=== PATIENT | male | born 1970 | race Caucasian/White ===

== ENCOUNTER 2016-09-11 10:26 | Inpatient (IN) | payer SELFPAY ==
--- NOTE | ~2016-09-11 | CN ---
Consultation Report [facility] [address] [place]. [address] NAME: TUAN ANGUOL : 74 STATUS : ADM Margaret PAT#: [id number] AGE: 46 ADM/REG DATE : 09/11/16 MR#: [id number] REPORT SERV DATE: 09/12/16 DICTATED BY: DIOGO ABDALLA DATE: 09/12/16 REPORT STATUS : Draft TRANSCRIBED BY: MODL DATE: 09/12/16 CARDIOLOGY CONSULTATION DATE OF CONSULTATION: 09/12/2016 REASON FOR CONSULTATION: Ischemic cardiomyopathy with recent syncope. HISTORY OF PRESENT ILLNESS: The patient is a 46-year-old white male with a history of ischemic cardiomyopathy and remote coronary stenting who presented to [facility] on 09/07/2016, five days ago, after a syncopal episode while mowing the yard with a push mower. He works as a air conditioning engineer and was out mowing when he "got stumbly" and then lost consciousness. He regained consciousness quickly and was taken by his friends to [facility]. He underwent syncopal workup there including an echocardiogram and carotid ultrasound as well as CT scan. Echocardiogram showed left ventricular ejection fraction of 35% with diastolic dysfunction as well as yvjk-bx-vyygnahn mitral regurgitation. No significant aortic stenosis or regurgitation. This ejection fraction is actually slightly improved from a previous myocardial perfusion scan in May of 2015 which showed an EF of 28%. Carotid ultrasound showed moderate disease in the left ICA. The patient was transferred to [facility] for further evaluation at his request. His troponins have been negative and there is no evidence of acute CHF exacerbation. He denies any chest pain and has not had any recurrent syncope or presyncope. PAST MEDICAL HISTORY: Significant for previous myocardial infarction with stenting of the LAD in 2002 and 2005. He has chronic congestive heart failure with an ejection fraction of around 30% as well as hypertension, hyperlipidemia, poorly controlled diabetes mellitus type 2, chronic kidney disease, and peripheral vascular disease. PAST SURGICAL HISTORY: Includes the above-mentioned cardiac catheterization and stenting. FAMILY HISTORY: Positive for coronary disease in his mother with an onset at age 50 as well as diabetes in his mother. SOCIAL HISTORY: The patient is a former smoker, having quit in 2005. He is and works with a [employer] business. REVIEW OF SYSTEMS: The patient reports some nausea following syncopal episode. No recent diarrhea or dysuria. No recent cough, wheeze, sputum production, fever, or chills. No other history of previous syncope. He denies any palpitations but does report some increased dyspnea on exertion over the last 6 months as well as some mild intermittent shortness of breath that is worse when he does not take his diuretic. There is possibly some mild orthopnea although the patient states this is not that significant. PHYSICAL EXAMINATION: Consultation Report [address] [place]. [address] NAME: TUAN ANGULO : 74 STATUS : ADM Margaret PAT#: [id number] AGE: 46 ADM/REG DATE : 09/11/16 MR#: [id number] REPORT SERV DATE: 09/12/16 DICTATED BY: DIOGO ABDALLA DATE: 09/12/16 REPORT STATUS : Draft TRANSCRIBED BY: GABRIELA DATE: 09/12/16 VITAL SIGNS: Blood pressure is 124/80, heart rate is 82 and regular, and respirations 16 and nonlabored. The patient is afebrile. GENERAL APPEARANCE: The patient is a well-developed, well-nourished white male, in no acute distress. HEENT: Unremarkable. NECK: Shows no jugular venous distention with good carotid upstroke. CHEST: Clear to auscultation bilaterally. CARDIOVASCULAR: The PMI is displaced inferolaterally but no murmurs, gallops, or rubs are appreciated. S1 is regular. S2 is narrowly split. ABDOMEN: Soft and nontender with normal bowel sounds. EXTREMITIES: Show no cyanosis, clubbing, or edema. SKIN: Warm and dry with no pallor or icterus. NEURO/PSYCH: The patient is alert and oriented x3 with appropriate affect. LABORATORY AND DIAGNOSTIC DATA: EKG shows normal sinus rhythm at a rate of [address]-T changes and an anterior septal scar. The QTc interval is slightly prolonged at 485 milliseconds. No acute injury pattern is present. Troponin is negative x2. BNP was slightly elevated at 938 although his chest x-ray did not show any evidence of volume overload or CHF decompensation. Chemistry panel shows a sodium of 142, potassium 4.0, BUN 23, creatinine 1.26, and magnesium of 1.7. CBC was also unremarkable with a white count of 8.8, hemoglobin slightly low at 11.1, hematocrit 32.6, and platelets 305. IMPRESSION: 1. Syncope in a patient with known ischemic cardiomyopathy. 2. Ischemic cardiomyopathy with an ejection fraction of around 35% or less. 3. Coronary artery disease, status post previous HI and stenting. 4. Hypertension. 5. Hyperlipidemia. 6. Diabetes mellitus type 2. PLAN: 1. We will plan cardiac catheterization for definitive evaluation of the coronary anatomy and possible percutaneous coronary intervention. 2. Continue home medications including beta-sadi and ARMEN inhibitor but hold metformin at this time. 3. Consider electrophysiology consult for possible AICD placement. Thank you very much for this consultation. We will follow the patient with you. AGATA/GABRIELA Diogo Abdalla NP Consultation Report [address] [address] NAME: ADELEMAICOLTUANKONSTANTIN SHETTY : 74 STATUS : ADM Margaret PAT#: [id number] AGE: 46 ADM/REG DATE : 09/11/16 MR#: [id number] REPORT SERV DATE: 09/12/16 DICTATED BY: DIOGO ABDALLA DATE: 09/12/16 REPORT STATUS : Draft TRANSCRIBED BY: GABRIELA DATE: 09/12/16 / [id number] CC: MD Tuan Clark M.D., F.A.C.C.
--- NOTE | ~2016-09-11 | OP ---
Record Of Operation [facility] [address] [place]. [address] NAME: TUAN ANGULO : 74 STATUS : ADM Margaret PAT#: [id number] AGE: 46 ADM/REG DATE : 09/11/16 MR#: [id number] REPORT SERV DATE: 09/13/16 DICTATED BY: TUAN GARCIA DATE: 09/13/16 REPORT STATUS : Draft TRANSCRIBED BY: MODL DATE: 09/13/16 DATE OF PROCEDURE: 09/13/2016 PTCA REPORT INDICATION FOR THIS PROCEDURE: Acute coronary syndrome. PROCEDURE IN DETAIL: The patient has already been prepped and draped. A 6-Indonesian sheath was in place in the right femoral artery for the preceding cardiac catheterization. Moderate IV sedation was administered. A 6 JR4 coronary guiding catheter was advanced to the right coronary ostium. The right coronary artery injections confirmed the presence of a 90% mid right coronary artery stenosis. A 0.014 Luge guidewire was passed into the distal right coronary artery. The vessel was then dilated with a 2.5/12 Emerge balloon at up to 15 atmospheres pressure for 15 seconds in duration. A 2.75/20 Synergy stent was then deployed at up to 15 atmospheres pressure for 15 seconds in duration. Intracoronary nitroglycerin was administered. Following removal of balloon and guidewire, final right coronary artery injection showed 0% residual stenosis at the site of stent implantation with CHANDRAKANT grade 3 distal flow. The right coronary guiding catheter was exchanged for a 6 JL4 coronary guiding catheter which was advanced to the left coronary ostium. Left coronary artery injections confirmed the presence of a segmental in-stent midvessel stenosis up to 99% severity. A 0.014 Luge guidewire was passed into the distal vessel. The vessel was then dilated with a 2.5/20 Emerge balloon and at up to 15 atmospheres of pressure for 15 seconds in duration. The proximal portion of the stenosis was then dilated with a 2.75/20 NC Emerge balloon at up to 20 atmospheres of pressure for 15 seconds in duration. Using a GuideLiner for support a 2.5/32 Synergy stent was deployed across the distal portion of the stenosis at up to 12 atmospheres pressure for 15 seconds in duration. A 2.75/28 Synergy stent was then deployed in overlapping fashion with the first stent across the proximal portion of the stenosis at up to 15 atmospheres of pressure for 15 seconds in duration. The proximal the proximal portion of the stented segment was then dilated with a 3.0/12 NC Emerge balloon at up to 20 atmospheres of pressure for 15 seconds in duration. Intracoronary nitroglycerin was administered. Following removal of balloon and guidewire, final left coronary artery injection showed 0% residual stenosis at the site of stent implantation with CHANDRAKANT grade 3 distal flow. The guiding catheter was removed. The sheath left in place. There were no apparent complications. TOTAL CONTRAST USED: 230 mL. TOTAL RADIATION EXPOSURE: 2040 mGy. ESTIMATED BLOOD LOSS: No significant blood loss occurred. IMPRESSION: 1. Successful PTCA and placement of drug-eluting stent in mid right coronary artery. 2. Successful PTCA and placement of drug-eluting in mid LAD. Record Of Operation [address] [address] NAME: TUAN ANGULO : 74 STATUS : ADM Margaret PAT#: [id number] AGE: 46 ADM/REG DATE : 09/11/16 MR#: [id number] REPORT SERV DATE: 09/13/16 DICTATED BY: TUAN GARCIA DATE: 09/13/16 REPORT STATUS : Draft TRANSCRIBED BY: GABRIELA DATE: 09/13/16 LELIA/GABRIELA Tuan Garcia M.D., F.A.C.C. / [id number] CC: Doe Sauceda MD
--- NOTE | ~2016-09-11 | OP ---
Record Of Operation [facility] [address] [place]. [address] NAME: TUAN ANGULO : 74 STATUS : ADM Margaret PAT#: [id number] AGE: 46 ADM/REG DATE : 09/11/16 MR#: [id number] REPORT SERV DATE: 09/13/16 DICTATED BY: TERRYTUAN B DATE: 09/13/16 REPORT STATUS : Draft TRANSCRIBED BY: MODL DATE: 09/13/16 DATE OF PROCEDURE: 09/13/2016 CARDIAC CATHETERIZATION REPORT INDICATION FOR THIS PROCEDURE: Acute coronary syndrome. PROCEDURE IN DETAIL: The patient was prepped and draped in usual sterile fashion. Moderate IV sedation was administered. Adequate anesthesia was obtained over the right femoral vessels using lidocaine infiltration. Using the Seldinger technique, a 6-Gambian sheath was placed in the right femoral artery. A 6 FL4 coronary catheter was advanced to the left coronary ostium. Left coronary artery injections were performed in multiple views. Left coronary catheter was exchanged for 6 FR4 coronary catheter which was advanced to the right coronary ostium. Right coronary artery injections were then performed in the ROMANSH and REDDING views. The right coronary catheter was then exchanged for a 6-Gambian pigtail catheter which was advanced in the left ventricular cavity. Pressures were measured across the aortic valve and the left ventricular angiogram was obtained in the REDDING projection. The pigtail catheter was removed over a guidewire and the sheath was left in place. There were no apparent complications. RESULTS: 1. Pressures: Left ventricular end-diastolic pressure was 18 mmHg. No gradient was present across the aortic valve. 2. Left ventricular angiogram: Left ventricle showed anterior apical hypokinesis with a global ejection fraction of 35% to 40%. 3. Coronary arteriograms: Left main coronary artery is normal. Left anterior descending coronary artery has a segmental in-stent midvessel stenosis of up to 99% severity. The left circumflex coronary artery has a patent stent in the obtuse marginal branch, but the distal obtuse marginal branch is a small caliber diffusely diseased vessel. The right coronary artery is a dominant vessel with a 90% mid vessel stenosis. IMPRESSION: 1. Three-vessel coronary artery disease with high-grade stenoses of the mid LAD and mid right coronary artery. 2. Diffuse small vessel disease. 3. Eeaqdbyz-br-folqdj left ventricular dysfunction. PLAN: The option of bypass surgery was discussed with the patient, but he did not want to have it and so it was decided to proceed with PCI of the LAD and RCA. SS/GABRIELA Tuan Garcia M.D., F.A.C.C. Record Of Operation [address] [place] [address] NAME: MAICOL ANGULOKONSTANTIN SHETTY : 74 STATUS : ADM Margaret PAT#: [id number] AGE: 46 ADM/REG DATE : 09/11/16 MR#: [id number] REPORT SERV DATE: 09/13/16 DICTATED BY: TUAN GARCIA DATE: 09/13/16 REPORT STATUS : Draft TRANSCRIBED BY: MODL DATE: 09/13/16 / [id number] CC: Doe Sauceda MD
--- NOTE | ~2016-09-11 | HP ---
History And Physical [facility] [address] [place]. [address] NAME: MATI ANGULO : 74 STATUS : ADM IN PAT#: [id number] AGE: 46 ADM/REG DATE : 09/11/16 MR#: [id number] REPORT SERV DATE: 09/11/16 DICTATED BY: IVETH NOLASCO DATE: 09/11/16 REPORT STATUS : Draft TRANSCRIBED BY: GABRIELA DATE: 09/11/16 DATE OF ADMISSION: 09/11/2016 CHIEF COMPLAINT: Weakness and shortness of breath. HISTORY OF PRESENT ILLNESS: The patient is a 46-year-old white male, who reports he has been short of breath for about six months. On Sunday, he was out mowing the grass. He works as a rental clerk tool and equipment, exerted himself with sweaty and diaphoretic and had a syncopal episode where he actually lost consciousness, was on the ground, was taken to [facility] where he was admitted. He was thought to be dry, actually received some hydration, this is all per his report. I do not have the records. He was told he had an EF around 28%, needed an AICD and pacer. He ultimately left the hospital on Sunday against medical advice. Wanted to return to [facility] where he had received care in the past with Dr. Garcia. The patient reports he has been fatigued for now 6 months. He is short of breath frequently. His last nuclear stress test was about a year ago. He reports he did not have any blockages that was done at [facility] also. He states he intermittently has some leg swelling but not today. He is not currently having chest pain. He also has a toe wound on the left great toe that he has been going to Wound Care for since February but it is actually healing. He just feels poorly much of the time and is concerned due to his level of weakness and his job requirements. He does not have typical orthopnea or PND today and he is not more short of breath than his baseline. PAST MEDICAL HISTORY: 1. CAD with history of PTCI x2 separate occasions, last in 2005. 2. Congestive heart failure. Last EF per his report on the nuclear was 28%. 3. Diabetes mellitus poorly controlled. 4. Hyperlipidemia. 5. Hypertension. 6. CKD. 7. Likely PAD. He does report he has carotid disease and he also has some diminished flow in his left foot. 8. Chronic wound to the left great toe. ALLERGIES: KEFLEX. FAMILY HISTORY: Positive for CAD and diabetes mellitus. PAST SURGICAL HISTORY: He has had no surgeries other than the cath. SOCIAL HISTORY: He quit smoking in 2005; does not drink alcohol. He works as a rental clerk tool and equipment, a very physical job. HOME MEDICATIONS: Reviewed and attached. REVIEW OF SYSTEMS: Full 10-point review was obtained. Pertinent positives are mentioned in the HPI. History And Physical [address] [address] NAME: MATI ANGULO : 74 STATUS : ADM IN [facility]#: [id number] AGE: 46 ADM/REG DATE : 09/11/16 MR#: [id number] REPORT SERV DATE: 09/11/16 DICTATED BY: IVETH NOLASCO DATE: 09/11/16 REPORT STATUS : Draft TRANSCRIBED BY: GABRIELA DATE: 09/11/16 PHYSICAL EXAMINATION: VITAL SIGNS: Current vital signs, sats are 98% on room air, pulse in the 80s, blood pressure 127/77, and temperature 98.2. GENERAL: A well-developed white male, in no apparent distress. HEENT: Normocephalic, atraumatic. Throat is clear. NECK: Supple. HEART: Regular rate and rhythm. LUNGS: Grossly clear. ABDOMEN: Soft, nontender. EXTREMITIES: Warm and dry. He has no peripheral edema. He has diminished pulses in the left foot but I did palpate on his right foot, he has a bounding pulse. He has a small toe ulcer on the left great toe on the base of his toe but it is almost completely healed. It does not appear infected in any way. SKIN: Otherwise intact. LABORATORY AND X-RAY: H and H 12 and 35, white count 10, platelets 325, and coags are normal. Chest x-ray is clear. Sodium 137, potassium 4, chloride 104, CO2 of 22, BUN and creatinine of 25 and 1.49, glucose is 378. Troponin is 0.2. Mag 1.6. EKG shows no acute ST-T wave changes. Sinus rhythm. BNP is 938. ASSESSMENT/PLAN: 1. Ischemic cardiomyopathy with progressive fatigue, weakness, and shortness of breath. He does not appear to have overt decompensated heart failure. Today, he is clear on exam. His chest x-ray does not show pulmonary edema. He has no peripheral edema. He got 1 dose of Lasix in the ER. I am not going to additionally diurese him. I am going to continue his beta sadi and ARMEN inhibitor. We will obtain his records from [facility] to include his echocardiogram which is most recent. He may need consideration for AICD and pacer. We will ask Dr. Garcia to see him in consultation and get his opinion. 2. CKD. We will need to watch his creatinine closely. I am hesitant to do any additional diuresis today since he looks to be really euvolemic to me and simply keep him on his p.o. Lasix. We will watch his creatinine closely. 3. Diabetes mellitus poorly controlled. We will check an A1c. Continue his home medications for now. We will add some sliding scale. He will likely need to be changed over to insulin. 4. Hyperlipidemia. Continue statin therapy. 5. Hypertension. Continue home medications. 6. Social circumstances. He is without insurance and I suspect he is going to have mounting healthcare bills due to the fact that he has all of these medical issues to include diabetes, CAD, ischemic cardiomyopathy, and probable PAD involving his left leg as well as his carotid. We will have case management see him in consultation to see if there is any way to qualify for some type of Medicaid or assistance. 7. Disposition pending above aforementioned plan and workup. ROEL/GABRIELA History And Physical [address] [address] NAME: MATI ANGULO : 74 STATUS : ADM IN PAT#: [id number] AGE: 46 ADM/REG DATE : 09/11/16 MR#: [id number] REPORT SERV DATE: 09/11/16 DICTATED BY: IVETH NOLASCO DATE: 09/11/16 REPORT STATUS : Draft TRANSCRIBED BY: GABRIELA DATE: 09/11/16 Iveth Nolasco M.D. / [id number] CC: Iveth Nolasco M.D.
--- NOTE | ~2016-09-11 | DS ---
Discharge Summary [address] [place]. [address] NAME: MATI ANGULO : 74 STATUS : DIS IN PAT#: [id number] AGE: 46 ADM/REG DATE : 09/11/16 MR#: [id number] REPORT SERV DATE: 09/15/16 DICTATED BY: DOE MELENDREZ DATE: 09/14/16 REPORT STATUS : Draft TRANSCRIBED BY: MODFadumo DATE: 09/14/16 ADMISSION DATE: 09/11/2016 DISCHARGE DATE: 09/14/2016 PROCEDURES DONE: 1. 09/11/2016, chest x-ray: Normal two-view chest. 2. 09/11/2016, 2D echo: Severely decreased left ventricular systolic function. Estimated ejection fraction 25% to 30%. Global hypocontractility. Normal RV size and mildly decreased systolic function. Mild to moderate mitral regurg. 09/13/2016, operative report by Dr. Garcia, cardiac cath report: Indication: Acute coronary syndrome. Results: 1. Left ventricular end-diastolic pressure was 18 mmHg. No gradient was present across the aortic valve. Left ventricular angiogram of his left ventricle showed anterior apical hypokinesis with a global ejection fraction of 35% to 40%. 2. Coronary arteriogram. Left main artery is normal. Left anterior descending coronary artery with segmental in-stent midvessel stenosis up to 99% severity. The left circumflex coronary artery has a patent stent in the obtuse marginal branch, but the distal obtuse marginal branch is a small-caliber diffusely decreased vessel. The right coronary artery is a dominant vessel with 90% mid vessel stenosis. Impression: Three-vessel coronary artery disease with high-grade stenosis in the mid LAD and mid right coronary artery. Diffuse small vessel disease. Jirkkxak-uj-lvawlt left ventricular dysfunction. Plan: Option of bypass was discussed with the patient, but he did not want to have it, so it was decided to proceed with PCI to LAD and RCA. 09/14/2015, operative report by Dr. Garcia: Indication: Acute coronary syndrome. PTCA. Contrast used was approximately 230 mL. Estimated blood loss, no significant occurred. Impression: Successful PTCA and placement of drug-eluting stent in the mid right coronary artery. Successful PTCA and placement of drug-eluting in mid LAD. REASON FOR ADMISSION: Weakness and shortness of breath. CONSULT: Dr. Garcia for Cardiology. HISTORY OF HOSPITAL STAY: A 46-year-old white male, past medical history of coronary artery disease status post stent x2, last one in 2005; congestive heart failure, last EF report via Discharge Summary [address] [place]. [address] NAME: MATI ANGULO : 74 STATUS : DIS IN PAT#: [id number] AGE: 46 ADM/REG DATE : 09/11/16 MR#: [id number] REPORT SERV DATE: 09/15/16 DICTATED BY: DOE MELENDREZ DATE: 09/14/16 REPORT STATUS : Draft TRANSCRIBED BY: MODL DATE: 09/14/16 nuclear was 28%; diabetes type 2; hyperlipidemia; hypertension; chronic kidney disease, stage III; questionable PDA; chronic wound, left great toe; presenting with weakness and shortness of breath. The patient was initially admitted at [facility] in [place], [place]. The patient requested treatment at [facility]. Dr. Garcia was consulted. Nurse practitioner, Rm saw the patient and felt the patient might be having acute coronary syndrome, and the patient underwent a heart catheterization. During the hospital stay, it was noted that the patient refused bypass at that time and hence the PTCA was initiated. The patient underwent left heart catheterization which resulted in the stent in the mid LAD and also in the mid RCA. The patient did well with the procedure. However, the patient received quite a significant contrast load of approximately 240 mL during the procedure. In addition, during the overnight stay, the patient was noted to have also intermittent V-tach. More importantly, the patient has been asked to stay overnight. Nurse practitioner, Josh Abdalla, from Dr. Garcia's group has discussed with the patient about the need to stay and the life-threatening issues of V-tach. However, the patient did not want to stay. In addition, I have also discussed the reason for staying. The patient seemed so adamant in leaving. Therefore, during the process of getting the process for the patient to go AMA, the came up and discussed the patient would like to stay 24 hours and not a day longer. I explained to the that if the patient is bent on leaving, 24 hours cannot be a guaranteed time to solve all of the patient's issues/problems. In order to prevent the patient not getting upset any further, the patient will be given his medications out of an abundance of caution and treatment for the patient to receive his medications to prevent stent closure. The patient has been advised that he will need to follow up as an outpatient. All the discussion time with the patient during this discharge as well as the time spent in the room during the AMA discussion was greater than 30 plus minutes. DISPOSITION: The patient is feeling fine, no complaints. ACTIVITIES: As tolerated. DIET: Diabetic. INSTRUCTIONS UPON DISCHARGE: The patient advised to follow up with Cardiology. MEDICATIONS UPON DISCHARGE: 1. Brilinta 90 mg p.o. b.i.d. 2. Aspirin 81 mg p.o. daily. 3. Lipitor 80 mg p.o. at bedtime. 4. Lasix 20 mg p.o. daily. 5. Lopid 600 mg p.o. b.i.d. 6. Amaryl 4 mg p.o. daily. 7. Metformin 1000 mg p.o. b.i.d., hold x2 days before restarting lisinopril 10 mg p.o. daily. 8. Multivitamin one tab daily. 9. Lopressor 50 mg p.o. b.i.d. 10.Prevacid 15 mg p.o. b.i.d. 11.Nitroglycerin sublingual p.r.n. Discharge Summary [address] [address] NAME: MATI ANGULO : 74 STATUS : DIS IN PAT#: [id number] AGE: 46 ADM/REG DATE : 09/11/16 MR#: [id number] REPORT SERV DATE: 09/15/16 DICTATED BY: DOE MELENDREZ DATE: 09/14/16 REPORT STATUS : Draft TRANSCRIBED BY: MODL DATE: 09/14/16 12.Medihoney one topical b.i.d. DIAGNOSES UPON DISCHARGE: 1. Weakness and shortness of breath secondary to acute coronary syndrome. 2. Acute coronary syndrome status post stent placement in the mid left anterior descending artery as well as mid right circumflex with an EF of 35% to 40%. 3. Congestive heart failure with diastolic dysfunction, EF of 35% to 40%. 4. Diabetes type 2. 5. Hypertension. 6. Hyperlipidemia. FBJ/MODL Doe Melendrez MD / [id number] CC: Doe Melendrze MD
[2016-09-11 11:10] LABS: BASOPHILS 0.6 %; BASOPHILS ABSOLUTE 0.06 10/3/uL (0.0-0.16); EOSINOPHILS 3.7 %; EOSINOPHILS ABSOLUTE 0.37 10/3/uL (0.0-0.53); HEMATOCRIT 35.4 % (40.0-51.0); HEMOGLOBIN 12.4 g/dL (13.6-17.8); IMMATURE GRANULOCYTES 0.5 %; IMMATURE GRANULOCYTES ABSOLUTE 0.05 10/3/uL (0.0-0.11); MEAN CORPUSCULAR HEMOGLOB 29.2 pg (26.0-34.0); MEAN CORPUSCULAR VOLUME 83.5 fL (80-100); MEAN PLATELET VOLUME 10.2 fL (9.2-13.0); MONOCYTES 5.8 %; MONOCYTES ABSOLUTE 0.58 10/3/uL (0.21-1.20); NEUTROPHILS 77.4 %; NEUTROPHILS ABSOLUTE 7.73 10/3/uL (2.02-8.40); PLATELET COUNT 325 10/3/uL (150-400); RBC DISTRIBUTION WIDTH 14.3 % (12.0-16.0); RED CELL COUNT 4.24 10/6/uL (4.7-6.1)
[2016-09-11 11:13] LABS: MANUAL DIFF NO %
[2016-09-11 11:18] LABS: INTERNATIONAL NORMAL RATI 1.1 UNITS (-); PARTIAL THROMBO TIME 37.7 SEC (22.5-37.2)
[2016-09-11 11:27] LABS: BUN (BLOOD UREA NITROGEN) 25 MG/DL (6-23); CALCIUM, SERUM 8.3 MG/DL (8.5-10.4); CHEST PAIN PROFILE TAT 0 Hrs 21 Mins; CHLORIDE, SERUM 104 MMOL/L (96-112); CO2 (CARBON DIOXIDE) 22 MMOL/L (24-34); CREATININE 1.49 MG/DL (0.70-1.30); GFR AFRICAN AMERICAN 65 ML/MIN (>=60); GFR NON AFRICAN AMERICAN 56 ML/MIN (>=60); SODIUM, SERUM 137 MMOL/L (135-148); TROPONIN I <0.02 NG/ML (<0.05)
[2016-09-11 11:28] LABS: GLUCOSE, SERUM 378 MG/DL (60-99)
[2016-09-11] MEDS ORDERED: LOPID6 PO (14:18)
[2016-09-11] MEDS ORDERED: AMARYL4 PO (14:18)
[2016-09-11] MEDS ORDERED: GLUCOPHAGE1000 MG PO (14:19)
[2016-09-11] MEDS ORDERED: PRIN10 PO (14:19)
[2016-09-11] MEDS ORDERED: L20 PO (14:20)
[2016-09-11] MEDS ORDERED: LOP50 PO (14:20)
[2016-09-11] MEDS ORDERED: PRAVACHOL40 MG PO (14:20)
[2016-09-11] MEDS ORDERED: ASAB PO (14:21)
[2016-09-11] MEDS ORDERED: MULTIVIT/MIN PO (14:21)
[2016-09-11] MEDS ORDERED: NITROSTAT0.4 MG SL (14:22)
[2016-09-11] MEDS ORDERED: PREV15 PO (14:22)
[2016-09-11] MEDS ORDERED: MEDIHONEY TOP (14:24)
[2016-09-12 03:21] LABS: BASOPHILS 0.6 %; BASOPHILS ABSOLUTE 0.05 10/3/uL (0.0-0.16); EOSINOPHILS 5.9 %; EOSINOPHILS ABSOLUTE 0.52 10/3/uL (0.0-0.53); HEMATOCRIT 32.6 % (40.0-51.0); HEMOGLOBIN 11.1 g/dL (13.6-17.8); IMMATURE GRANULOCYTES 0.3 %; IMMATURE GRANULOCYTES ABSOLUTE 0.03 10/3/uL (0.0-0.11); LYMPHOCYTES 24.9 %; LYMPHOCYTES ABSOLUTE 2.18 10/3/uL (0.67-4.30); MEAN CORPUSCULAR HEMOGLOB 28.8 pg (26.0-34.0); MEAN CORPUSCULAR VOLUME 84.5 fL (80-100); MEAN PLATELET VOLUME 10.5 fL (9.2-13.0); MONOCYTES 7.3 %; MONOCYTES ABSOLUTE 0.64 10/3/uL (0.21-1.20); NEUTROPHILS ABSOLUTE 5.34 10/3/uL (2.02-8.40); PLATELET COUNT 305 10/3/uL (150-400); RBC DISTRIBUTION WIDTH 14.3 % (12.0-16.0); RED CELL COUNT 3.86 10/6/uL (4.7-6.1); WHITE BLOOD CELLS 8.8 10/3/uL (4.5-10.5)
[2016-09-12 03:25] LABS: MANUAL DIFF NO %
[2016-09-12 03:37] LABS: BUN (BLOOD UREA NITROGEN) 23 MG/DL (6-23); CALCIUM, SERUM 8.3 MG/DL (8.5-10.4); CHLORIDE, SERUM 109 MMOL/L (96-112); CO2 (CARBON DIOXIDE) 23 MMOL/L (24-34); CREATININE 1.26 MG/DL (0.70-1.30); GFR AFRICAN AMERICAN 80 ML/MIN (>=60); GFR NON AFRICAN AMERICAN 69 ML/MIN (>=60); GLUCOSE, SERUM 172 MG/DL (60-99); SODIUM, SERUM 142 MMOL/L (135-148); TROPONIN I <0.02 NG/ML (<0.05)
[2016-09-13 05:29] LABS: BASOPHILS 1.3 %; BASOPHILS ABSOLUTE 0.09 10/3/uL (0.0-0.16); EOSINOPHILS 7.3 %; EOSINOPHILS ABSOLUTE 0.49 10/3/uL (0.0-0.53); HEMATOCRIT 32.7 % (40.0-51.0); HEMOGLOBIN 11.2 g/dL (13.6-17.8); IMMATURE GRANULOCYTES 0.3 %; IMMATURE GRANULOCYTES ABSOLUTE 0.02 10/3/uL (0.0-0.11); LYMPHOCYTES 27.6 %; LYMPHOCYTES ABSOLUTE 1.84 10/3/uL (0.67-4.30); MEAN CORPUS HGB CONC 34.3 g/dL (32.0-36.0); MEAN CORPUSCULAR HEMOGLOB 28.9 pg (26.0-34.0); MEAN CORPUSCULAR VOLUME 84.3 fL (80-100); MEAN PLATELET VOLUME 10.8 fL (9.2-13.0); MONOCYTES 7.6 %; MONOCYTES ABSOLUTE 0.51 10/3/uL (0.21-1.20); NEUTROPHILS 55.9 %; NEUTROPHILS ABSOLUTE 3.72 10/3/uL (2.02-8.40); PLATELET COUNT 321 10/3/uL (150-400); RBC DISTRIBUTION WIDTH 14.3 % (12.0-16.0); RED CELL COUNT 3.88 10/6/uL (4.7-6.1); WHITE BLOOD CELLS 6.7 10/3/uL (4.5-10.5)
[2016-09-13 05:30] LABS: MANUAL DIFF NO %
[2016-09-13 05:52] LABS: A/G RATIO 0.4 (0.7-1.9); ALBUMIN 1.7 G/DL (3.5-5.0); ALKALINE PHOSPHATASE 73 U/L (45-117); BUN (BLOOD UREA NITROGEN) 24 MG/DL (6-23); CALCIUM, SERUM 8.7 MG/DL (8.5-10.4); CHLORIDE, SERUM 106 MMOL/L (96-112); CHOL/HDL RATIO(NOT ORDER) 7.5 (0-5); CHOLESTEROL 294 MG/DL (< 200); CO2 (CARBON DIOXIDE) 23 MMOL/L (24-34); CREATININE 1.31 MG/DL (0.70-1.30); GFR AFRICAN AMERICAN 76 ML/MIN (>=60); GFR NON AFRICAN AMERICAN 66 ML/MIN (>=60); GLOBULIN 4.2 G/DL (2.5-4.1); HDL CHOLESTEROL 39 MG/DL (> 39); LDL CHOLESTEROL 187 MG/DL (< 130); NON-HDL CHOLESTEROL 255 MG/DL (< 160); PHOSPHORUS, SERUM 4.5 MG/DL (2.5-4.5); POTASSIUM, SERUM 4.2 MMOL/L (3.5-5.3); SGOT(AST) 10 U/L (5-40); SGPT(ALT) 19 U/L (5-65); SODIUM, SERUM 141 MMOL/L (135-148); TOTAL BILIRUBIN 0.4 MG/DL (0-1.2); TOTAL PROTEIN 5.9 G/DL (6.0-8.5); TRIGLYCERIDE 344 MG/DL (< 150)
[2016-09-13 05:53] LABS: GLUCOSE, SERUM 231 MG/DL (60-99)
[2016-09-13 12:44] LABS: CK-MB 5.7 NG/ML
[2016-09-14 04:54] LABS: BASOPHILS 0.5 %; BASOPHILS ABSOLUTE 0.05 10/3/uL (0.0-0.16); EOSINOPHILS 3.4 %; EOSINOPHILS ABSOLUTE 0.35 10/3/uL (0.0-0.53); HEMATOCRIT 35.1 % (40.0-51.0); HEMOGLOBIN 12.1 g/dL (13.6-17.8); IMMATURE GRANULOCYTES 0.2 %; IMMATURE GRANULOCYTES ABSOLUTE 0.02 10/3/uL (0.0-0.11); LYMPHOCYTES 13.5 %; LYMPHOCYTES ABSOLUTE 1.38 10/3/uL (0.67-4.30); MEAN CORPUS HGB CONC 34.5 g/dL (32.0-36.0); MEAN CORPUSCULAR HEMOGLOB 29.1 pg (26.0-34.0); MEAN CORPUSCULAR VOLUME 84.4 fL (80-100); MEAN PLATELET VOLUME 10.4 fL (9.2-13.0); MONOCYTES 6.2 %; MONOCYTES ABSOLUTE 0.63 10/3/uL (0.21-1.20); NEUTROPHILS 76.2 %; NEUTROPHILS ABSOLUTE 7.78 10/3/uL (2.02-8.40); PLATELET COUNT 344 10/3/uL (150-400); RBC DISTRIBUTION WIDTH 14.4 % (12.0-16.0); RED CELL COUNT 4.16 10/6/uL (4.7-6.1)
[2016-09-14 04:57] LABS: MANUAL DIFF NO %; WHITE BLOOD CELLS 10.2 10/3/uL (4.5-10.5)
[2016-09-14 05:07] LABS: ALBUMIN 1.8 G/DL (3.5-5.0); BUN (BLOOD UREA NITROGEN) 21 MG/DL (6-23); CALCIUM, SERUM 8.5 MG/DL (8.5-10.4); CHLORIDE, SERUM 110 MMOL/L (96-112); CK-MB 18.5 NG/ML; CO2 (CARBON DIOXIDE) 23 MMOL/L (24-34); CPK 294 U/L (0-200); CREATININE 1.33 MG/DL (0.70-1.30); GFR AFRICAN AMERICAN 75 ML/MIN (>=60); GFR NON AFRICAN AMERICAN 65 ML/MIN (>=60); PHOSPHORUS, SERUM 3.9 MG/DL (2.5-4.5); POTASSIUM, SERUM 4.1 MMOL/L (3.5-5.3); SODIUM, SERUM 142 MMOL/L (135-148)
[2016-09-14 05:12] LABS: CKMB INDEX (NOT ORD) 6.3; GLUCOSE, SERUM 168 MG/DL (60-99)
== END 2016-09-14 10:49 | disposition home or self-care (01) | DRG 247 ==
LOC: ER 10:26 → 7NO 14:33 → SSU1 09-13 11:20
PROVIDERS: Emergency Medicine; Internal Medicine; Internal Medicine Interventional Cardiology
PROC: 027135Z Dilation of Coronary Artery, Two Arteries with Two Drug-eluting Intraluminal Devices, Percutaneous Approach (ICD-10-PCS; principal; 2016-09-13)
PROC: 4A023N7 Measurement of Cardiac Sampling and Pressure, Left Heart, Percutaneous Approach (ICD-10-PCS; 2016-09-13)
PROC: B2151ZZ Fluoroscopy of Left Heart using Low Osmolar Contrast (ICD-10-PCS; 2016-09-13)
PROC: B2111ZZ Fluoroscopy of Multiple Coronary Arteries using Low Osmolar Contrast (ICD-10-PCS; 2016-09-13)
DX: I25.110 Atherosclerotic heart disease of native coronary artery with unstable angina pectoris (principal); I47.2 Ventricular tachycardia; E11.22 Type 2 diabetes mellitus with diabetic chronic kidney disease; I50.22 Chronic systolic (congestive) heart failure; I13.0 Hypertensive heart and chronic kidney disease with heart failure and stage 1 through stage 4 chronic kidney disease, or unspecified chronic kidney disease; I25.5 Ischemic cardiomyopathy; E11.65 Type 2 diabetes mellitus with hyperglycemia; E78.5 Hyperlipidemia, unspecified; I73.9 Peripheral vascular disease, unspecified; N18.3 Chronic kidney disease, stage 3 (moderate); I34.0 Nonrheumatic mitral (valve) insufficiency; E11.51 Type 2 diabetes mellitus with diabetic peripheral angiopathy without gangrene; R55 Syncope and collapse; I25.2 Old myocardial infarction; Z95.5 Presence of coronary angioplasty implant and graft; Z79.4 Long term (current) use of insulin; Z82.49 Family history of ischemic heart disease and other diseases of the circulatory system; Z87.891 Personal history of nicotine dependence
CPT/HCPCS: 71020; 80048; 80053; 80061; 80069; 82550; 82553; 82962; 83036; 83735; 83880; 84100; 84484; 85025; 85610; 85730; 93005; 93306; 93458; 99152; 99153; 99285; A9270-GY; C1713; C1725; C1769; C1874; C1887; C9600; J0583; J1170; J2250; J2405; J3010; Q9967